=== PATIENT | female | born 1945 | race Caucasian/White ===

== ENCOUNTER → 2016-09-22 | Outpatient (CLI) | payer MEDICARE, BC ==
[~2016-09-22] MED LIST: AMLO5TAB PO; DICLOFENAC SODI75 M2 PO; HCTZ/LISINOPRIL1 TA3 PO; NORCO 325 MG-51 TAB PO
[2016-09-22 08:46] LABS: HEMOGLOBIN 13.3 g/dL (12.2-16.2); LYMPH # 1.5 K/mm3 (0.7-4.5); LYMPH % 29.9 % (10-50.0)
[2016-09-22 09:58] LABS: BUN 30 mg/dL (7-18)
[2016-09-22 10:02] LABS: GFR (ESTIMATED) 71 ML/MIN (59-)
[2016-09-22 11:52] LABS: URINE BILIRUBIN - DIPSTICK NEGATIVE (NEG); URINE BLOOD NEGATIVE (NEG)
[2016-09-25 14:40] LABS: Alpha-1-Globulin 0.2 g/dL (0.0-0.4); Alpha-2-Globulin 0.7 g/dL (0.4-1.0); Gamma Globulin 1.1 g/dL (0.4-1.8); Protein, Total 7.1 g/dL (6.0-8.5)
== END ==
LOC: LAB 08:32
PROVIDERS: Internal Medicine
DX: Z96.652 Presence of left artificial knee joint (principal); I10 Essential (primary) hypertension